=== PATIENT | female | born 1950 | race Caucasian/White ===

== ENCOUNTER 2021-03-10 13:03 | Emergency (ER) | payer MEDICARE, SELFPAY ==
[2021-03-10] VITALS (8 sets, daily range): BP systolic 160–196; BP diastolic 89–114; PULSE 69–90; RESP 17–24; TEMP 36.6; O2SAT 92–95; BMI 30.9
--- NOTE | 2021-03-10 13:37 | ECG_ITS ---
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 Measurements Intervals [place] Rate: 71 P: 71 NM: 163 QRS: 37 QRSD: 71 T: 72 QT: 379 QTc: 414 Interpretive Statements SINUS RHYTHM No previous ECG available for comparison Electronically Signed On 03-11-2021 0:31:28 CDT by Annabelle Hernandez M.D. [email or web address] hospitalAsync Technologieskettering health [email or web address]/[id number]
--- NOTE | 2021-03-10 13:38 | XRR_ITS ---
PROCEDURE INFORMATION: Exam: XR Chest Exam date and time: 03/10/2021 1:38 PM Age: 71 years old Clinical indication: Chest pain on breathing. High blood pressure. Leg edema. Shortness of breath. TECHNIQUE: Imaging protocol: XR of the chest. Views: 2 views. COMPARISON: [facility] Thoracic Spine 3 views 05/17/2014 11:42 AM FINDINGS: Lungs: No pulmonary consolidation. Pleural spaces: No pleural effusion.; No pneumothorax. Heart/Mediastinum: The cardiac silhouette is unremarkable. No gross evidence of pneumomediastinum. Vasculature: The descending thoracic aorta is tortuous. Bones/joints: An old right rib fracture is noted. Deformity of the proximal left humerus likely reflects remote trauma. Possible calcific tendinosis of the right rotator cuff. No definite acute fracture. XR/XR chest 2V* [id number] IMPRESSION: 1. No acute cardiopulmonary abnormality identified. 2. The descending thoracic aorta is tortuous. 3. Deformity of the proximal left humerus likely reflects remote trauma. 4. Possible calcific tendinosis of the right rotator cuff.
--- NOTE | 2021-03-10 13:41 | ED_ITS ---
HPI - SOB/Dyspnea General: Chief Complaint: Shortness of Breath/Dyspnea Stated Complaint: SOB. BILAT low extr edema Time Seen by Provider: 03/10/21 13:24 Source: patient Mode of arrival: ambulatory Limitations: no limitations History of Present Illness: HPI Narrative: The patient is a 71-year-old female with no prior medical history although she does not go to the doctors. The patient states that she has a distrust of doctors at healthcare systems and so does not see doctors. She was however advised to come to the emergency department by her weatherization operations manager because he noticed she had significantly swollen legs. She states that her legs have been swollen for about a year and has been progressively worsening. Sometimes her legs weep, sometimes they hurt. She endorses orthopnea. She endorses shortness of breath that has been progressive also. She denies any chest pain. No nausea or vomiting. No fever. The patient also has a long history of smoking. MD elicited complaint: shortness of breath Onset (ago): year(s) (1) Timing: constant and progressively worsening Exacerbating factors: lying flat Relieving factors: nothing Associated symptoms: Reports orthopnea; Deny abdominal pain, chest congestion, chest pain, cough, diaphoresis, dizziness, extremity pain, fever(s), hemoptysis, lightheadedness, myalgias, nausea, palpitations, paresthesias, polydipsia, polyuria, rash, sense of impending doom, syncope or vomiting Treatment prior to arrival: none Review of Systems General: Reports: 10 or more systems reviewed and unremarkable except in HPI and below Const: Denies: fever(s) or diaphoresis Card: Reports: orthopnea; Denies: chest pain, palpitations, lightheadedness or syncope Resp: Denies: hemoptysis or chest congestion GI: Denies: abdominal pain, nausea or vomiting Musc: Denies: extremity pain Neuro: Denies: dizziness Endo: Denies: polyuria or polydipsia Physical Exam Const: COMMON NORMALS: no acute distress, average body habitus, patient oriented x3, no limitations, healthy appearing, alert and well nourished HENMT: COMMON NORMALS: normocephalic, atraumatic and moist oral mucous membranes HEAD & SCALP: normocephalic and atraumatic Eye: COMMON NORMALS: Equal, round and reactive pupils present, EOMs intact bilaterally, conjunctivae normal and no scleral icterus CONJUNCTIVA: Yes conjunctivae normal PUPIL: Yes Equal, round and reactive pupils present Neck/C-Spine: COMMON NORMALS: no meningeal signs and no JVD Resp: COMMON NORMALS: normal respiratory effort, No retractions, No use of accessory muscles and percussion normal EFFORT & INSPECTION: Yes labored AUSCULTATION: rales bilateral, wheezes and diminished lung sounds PERCUSSION: percussion normal Cardio: COMMON NORMALS: no JVD, regular rate, regular rhythm, S1 normal heart sound present, S2 normal heart sound present, No gallops present (Cardio), No clicks present (Cardio), No murmurs present (Cardio), No rub (Cardio) and Peripheral pulses 2+ throughout RATE: regular rate RHYTHM: regular rhythm HEART SOUNDS: S1 normal heart sound present and S2 normal heart sound present PERIPHERAL PULSES: Peripheral pulses 2+ throughout GI: COMMON NORMALS: Normal to inspection, nondistended, normoactive bowel sounds present, Soft to palpation, non-tender, No hepatosplenomegaly present, no masses and no bruits PALPATION: Yes Soft to palpation and Yes No hepatosplenomegaly present Extremity: COMMON NORMALS: normal to inspection, full ROM, capillary refill normal and no calf tenderness GENERAL: Yes edema (4+, chronic appearing with skin changes) Neuro: COMMON NORMALS: patient oriented x3 SENSORIUM/ORIENTATION: Yes alert MENINGEAL SIGNS: Yes no meningeal signs Skin: COMMON NORMALS: no rashes or lesions noted, no wounds, turgor normal, no jaundice, no petechiae and no mottling GENERAL SKIN EXAM: no rashes or lesions noted and turgor normal Course Reevaluation(s): Reevaluation #1: Discussed her lab and imaging findings with her. Lab and imaging not consistent with CHF. X-ray findings and examination consistent with COPD. I believe she has chronic lymphedema. She will be monitor the case of COPD exacerbation. Beta agonist breathing treatment helped her symptoms. We will discharge her home with a prescription for oral steroids, furosemide. Advised to get compression stockings, and albuterol inhaler. She voiced understanding and is in agreement with the plan. Time: 16:04 Vital Signs: Vital signs: Vital Signs Temperature 97.9 F 03/10/21 13:13 Pulse Rate 87 07/13/21 16:37 Respiratory Rate 18 03/10/21 16:37 Blood Pressure 160/89 03/10/21 16:37 Pulse Oximetry 94 03/10/21 16:37 MDM - SOB/Dyspnea MDM Narrative: Medical decision making narrative: 71-year-old female patient who was evaluated in the emergency department with concerns for congestive heart failure. Evaluation is consistent with COPD exacerbation. She will however obtain an outpatient echocardiogram. proBNP only mildly elevated, imaging and examination findings consistent with COPD. She is discharged home with a prescription for steroids, furosemide, and a beta agonist inhaler. Medical Records: Attestation: I reviewed the patient's medical records. Lab Data: Attestation: I reviewed the patient's lab results. Labs: Lab Results 03/10/21 03/10/21 03/10/21 Range/Units 13:45 13:53 13:53 WBC 8.2 (4.0-10.0) 10^3/ uL RBC 5.34 H (4.1-5.3) 10^6/u L Hgb 15.5 H (11.5-15.3) g/dL Hct 48.0 H (37.0-47.0) % MCV 89.9 (81-99) fL MCH 29.0 (28.0-34.0) pg MCHC 32.3 (30.0-36.0) g/dL RDW 13.7 (12.1-15.1) % Plt Count 199 (130-400) 10^3/c mm MPV 10.2 (7.4-10.4) fL Neut % (Auto) 72.1 % Lymph % (Auto) 20.0 % [place] % (Auto) 6.4 % Eos % (Auto) 0.9 % Baso % (Auto) 0.4 % Neut # (Auto) 5.90 (1.8-7.7) 10^3/u L Lymph # (Auto) 1.6 (0.8-4.8) 10^3/u L [place] # (Auto) 0.5 (0.2-0.9) 10^3/u L Eos # (Auto) 0.1 (0.0-0.8) 10^3/u L Baso # (Auto) 0.0 (0.0-0.1) 10^3/u L Nucleated RBC % (a uto) 0 % Nucleated RBCs # 0.0 /100WBC PT 13.90 (12.1-14.9) SECO NDS INR 1.04 (0.8-1.2) Sodium 140 (136-145) mmol/L Potassium 4.0 (3.5-5.1) mmol/L Chloride 104 (98-107) mmol/L Carbon Dioxide 27 (22-29) mmol/L Anion Gap 13.0 (5-19) BUN 15 (8-23) mg/dL Creatinine 0.5 (0.5-0.9) mg/dL GFR Calculation Not Reportable Glucose 102 (65-115) mg/dL Calculated Osmolal ity 291 (285-295) mOsm/k g Calcium 8.9 (8.5-10.5) mg/dL Total Bilirubin 0.6 (0.15-1.2) mg/dL AST 12 (0-32) U/L ALT 11 (0-33) U/L Alkaline Phosphata se 142 H (35-105) IU/L Troponin T Baselin e (0-10) ng/L NT-Pro-B Natriuret Pep 157 H (0-125) pg/mL Total Protein 6.6 (6.6-8.7) g/dL Albumin 3.9 (3.5-5.2) g/dL Globulin 2.7 (1.3-4.6) g/dL 03/10/21 Range/Units 13:53 WBC (4.0-10.0) 10^3/ uL RBC (4.1-5.3) 10^6/u L Hgb (11.5-15.3) g/dL Hct (37.0-47.0) % MCV (81-99) fL MCH (28.0-34.0) pg MCHC (30.0-36.0) g/dL RDW (12.1-15.1) % Plt Count (130-400) 10^3/c mm MPV (7.4-10.4) fL Neut % (Auto) % Lymph % (Auto) % [place] % (Auto) % Eos % (Auto) % Baso % (Auto) % Neut # (Auto) (1.8-7.7) 10^3/u L Lymph # (Auto) (0.8-4.8) 10^3/u L [place] # (Auto) (0.2-0.9) 10^3/u L Eos # (Auto) (0.0-0.8) 10^3/u L Baso # (Auto) (0.0-0.1) 10^3/u L Nucleated RBC % (a uto) % Nucleated RBCs # /100WBC PT (12.1-14.9) SECO NDS INR (0.8-1.2) Sodium (136-145) mmol/L Potassium (3.5-5.1) mmol/L Chloride (98-107) mmol/L Carbon Dioxide (22-29) mmol/L Anion Gap (5-19) BUN (8-23) mg/dL Creatinine (0.5-0.9) mg/dL GFR Calculation Glucose (65-115) mg/dL Calculated Osmolal ity (285-295) mOsm/k g Calcium (8.5-10.5) mg/dL Total Bilirubin (0.15-1.2) mg/dL AST (0-32) U/L ALT (0-33) U/L Alkaline Phosphata se (35-105) IU/L Troponin T Baselin e 6 (0-10) ng/L NT-Pro-B Natriuret Pep (0-125) pg/mL Total Protein (6.6-8.7) g/dL Albumin (3.5-5.2) g/dL Globulin (1.3-4.6) g/dL Imaging Data^: CXR: Attestation: I personally reviewed and interpreted this imaging study as follows: Radiologist's impression: [address] [id number] ReportSigned Patient: Silas Roberto #: [id number]: 1950Acct#:[id number]/Sex: 71 / FADM Date: 03/10/21Loc: ERRoom/Bed:Attending Dr: Ordering Provider/Ordering MD: Dilcia Mckeon MD, [facility] Date of Service: 03/10/21 Procedure(s): XR chest 2V* [id number] Accession Number(s): [id number] Report Number: [id number] PROCEDURE INFORMATION: Exam: XR Chest Exam date and time: 03/10/2021 1:38 PM Age: 71 years old Clinical indication: Chest pain on breathing. High blood pressure. Leg edema. Shortness of breath. TECHNIQUE: Imaging protocol: XR of the chest. Views: 2 views. COMPARISON: [facility] Thoracic Spine 3 views 05/17/2014 11:42 AM FINDINGS: Lungs: No pulmonary consolidation. Pleural spaces: No pleural effusion.; No pneumothorax. Heart/Mediastinum: The cardiac silhouette is unremarkable. No gross evidence of pneumomediastinum. Vasculature: The descending thoracic aorta is tortuous. Bones/joints: An old right rib fracture is noted. Deformity of the proximal left humerus likely reflects remote trauma. Possible calcific tendinosis of the right rotator cuff. No definite acute fracture. XR/XR chest 2V* [id number] IMPRESSION: 1. No acute cardiopulmonary abnormality identified. 2. The descending thoracic aorta is tortuous. 3. Deformity of the proximal left humerus likely reflects remote trauma. 4. Possible calcific tendinosis of the right rotator cuff. Dictated By:Susu Kendalligned By:Susu Kendalligned Date/Time:03/10/21 1500DD/ 1458 EKG Data^: EKG 1: Attestation: I personally reviewed and interpreted this EKG as follows: EKG Interpretation Date: 03/10/21 EKG interpretation time: 14:39 Prior EKG tracings: not available for review Interpretation: Sinus rhythm. Heart rate 71 bpm. Normal axis. No ST changes. EKG 2: Attestation: I personally reviewed and interpreted this EKG as follows: EKG Interpretation Date: 03/10/21 EKG interpretation time: 15:28 Prior EKG tracings: available for review Interpretation: Sinus rhythm. Heart rate 75 bpm. Normal axis. No ST changes. No significant change from earlier today. Discharge Plan Discharge Patient Disposition: Home Clinical Impression: Acute exacerbation of chronic obstructive airways disease, Lymphedema of both lower extremities COPD (chronic obstructive pulmonary disease) Qualifiers: COPD type: unspecified COPD Qualified Code(s): J44.9 - Chronic obstructive pulmonary disease, unspecified Condition: Stable Prescriptions: New Lasix 20 mg tablet 20 mg PO DAILY Qty: 10 RF: 0 prednisone 20 mg tablet 60 mg PO DAILY Qty: 15 RF: 0 albuterol sulfate 90 mcg/actuation HFA aerosol inhaler 4 inh inhalation Q4H PRN (Reason: shortness of breath or wheezing) Qty: 8.5 RF: 0 (DME) compress.stocking,knee,reg,lrg Misc See Rx Instructions .ROUTE Qty: 2 RF: 0 Continued Aleve 220 mg Tablet 220 - 440 mg PO Q12H PRN (Reason: Pain) RF: 0 Advil 200 mg Tablet 200 - 400 mg PO Q6H PRN (Reason: Pain) RF: 0 Equate Sinus Tablets 1 - 2 tab PO Q6H PRN (Reason: SINUS/ALLERGY SYMPTOMS) RF: 0 Discharge Orders: Discharge ED (Routine); Ordered 03/10/21 Ordered By: Dilcia Mckeon Discharge Diet: Usual diet Discharge Activity: Increase activity as tolerated Patient Instructions: Chronic Obstructive Pulmonary Disease (ED), Lymphedema (ED) Activity Restrictions/Additional Instructions: Return for any new or worsening symptoms. Follow-up with your primary care provider within 3 days. Obtain compression stockings and see if they will help with your leg swelling. Take your medications as prescribed. It is important that he quits cigarette smoking and that would improve your health status. You will be contacted by case management to schedule an appointment for an outpatient echocardiogram which is an ultrasound of your heart. Coding Level of Care Code ED Sql Server Consultant for Daisy Fwd Exam Comprehensive
[2021-03-10 14:08] LABS: Basophils % 0.4 %; Eosinophils # 0.1 10^3/uL (0.0-0.8); Eosinophils % 0.9 %; Hemoglobin 15.5 g/dL (11.5-15.3); Lymphocytes # 1.6 10^3/uL (0.8-4.8); Mean Corpuscular HGB Conc 32.3 g/dL (30.0-36.0); Mean Corpuscular Volume 89.9 fL (81-99); Mean Platelet Volume 10.2 fL (7.4-10.4); Monocytes # 0.5 10^3/uL (0.2-0.9); Monocytes % 6.4 %; Neutrophils % 72.1 %; Nucleated Red Blood Cells % 0 %; Platelet Count 199 10^3/cmm (130-400); Red Blood Count 5.34 10^6/uL (4.1-5.3); Red Cell Distribution Width 13.7 % (12.1-15.1); White Blood Count 8.2 10^3/uL (4.0-10.0)
[2021-03-10 14:34] LABS: Troponin(5th) Baseline 6 ng/L (0-10)
[2021-03-10 14:43] LABS: Alanine Aminotransferase 11 U/L (0-33); Albumin Level 3.9 g/dL (3.5-5.2); Alkaline Phosphatase 142 IU/L (35-105); Aspartate Amino Transferase 12 U/L (0-32); Blood Urea Nitrogen 15 mg/dL (8-23); Calcium 8.9 mg/dL (8.5-10.5); Carbon Dioxide 27 mmol/L (22-29); Chloride 104 mmol/L (98-107); Creatinine Clr Calc Pharmacy 66.6724; Globulin 2.7 g/dL (1.3-4.6); Glucose 102 mg/dL (65-115); NT Pro B Type Natriuretic Pept 157 pg/mL (0-125); Osmolality Calculated 291 mOsm/kg (285-295); Sodium 140 mmol/L (136-145); Total Bilirubin 0.6 mg/dL (0.15-1.2); Total Protein 6.6 g/dL (6.6-8.7)
[2021-03-10 15:01] LABS: INR 1.04 (0.8-1.2)
[2021-03-10] MEDS: ipratropium-albuterol 3 mL Neb INHALATION (15:07)
--- NOTE | 2021-03-10 15:37 | ECG_ITS ---
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 Measurements Intervals [place] Rate: 75 P: 76 [place]: 166 QRS: 56 QRSD: 68 T: 81 QT: 377 QTc: 423 Interpretive Statements SINUS RHYTHM Compared to ECG 03/10/2021 14:39:01 No significant changes Electronically Signed On 03-11-2021 0:37:44 CDT by Annabelle Hernandez M.D. [email or web address] care hospitalPCH Internationalmercy health tiffin hospitalMy Team Zone/store/OM/[id number]
--- NOTE | 2021-03-11 11:16 | DCPLANNER ---
Addendum entered by Steffanie Amaro 03/13/21 11:39: strategic development manager called patient and asked patient who she would like for a primary care, patient stated that she would have to think about it and would call child support case officer back. Original Note: strategic development manager had message to schedule an outpatient echocardiogram for patient. Patient does not have a primary care physician. strategic development manager called phone number [phone], unable to speak with patient, and unable to leave a voicemail due to voicemail box being full.
== END 2021-03-10 16:37 | disposition home or self-care (01) ==
PROVIDERS: Emergency Provider Family Medicine
DX: J44.1 Chronic obstructive pulmonary disease with (acute) exacerbation (principal); I89.0 Lymphedema, not elsewhere classified; R07.9 Chest pain, unspecified
CPT/HCPCS: 36415; 71046; 80053; 83880; 84484; 85025; 85610; 93005; 94640; 99283